=== PATIENT | male | born 1955 | race African-American/Black ===

== ENCOUNTER 2020-07-07 14:33 | Emergency (ER) | payer OTHER ==
[~2020-07-07] VITALS: Ht 172.7 cm; Wt 68.0 kg
[2020-07-07 15:31] LABS: ABSOLUTE NEUTROPHILS 5.9 thou/uL (1.4-8.2); BASOPHILS 0.9 % (0.0-2.0); EOSINOPHILS 1.9 % (0.0-3.0); HEMATOCRIT 39.4 % (42.0-52.0); HEMOGLOBIN 13.5 gm/dL (14.0-18.0); LYMPHOCYTES 21.8 % (24.0-44.0); MCH 27.9 pg (26.0-34.0); MCHC 34.3 g/dL (28.0-37.0); MCV 81.4 fL (80.0-100.0); PLATELET COUNT 303 thou/uL (150-400); POLYS 65.4 % (36.0-66.0); RBC 4.84 mil/uL (4.50-6.00); WBC 9.1 thou/uL (4.0-11.0)
[2020-07-07 15:40] LABS: ANION GAP 8 mmol/L (7-16); BUN 25 mg/dL (7-18); CALCIUM 8.9 mg/dL (8.5-10.1); CHLORIDE 102 mmol/L (98-107); CO2 28 mmol/L (21-32); GLUCOSE 85 mg/dL (74-106); POTASSIUM 4.2 mmol/L (3.5-5.1); SODIUM 138 mmol/L (136-145)
[2020-07-07] MEDS ORDERED: TRAMADOL 50 MG50 MG PO (15:47)
[2020-07-07] MEDS ORDERED: ULTRAM50 MG PO (15:48)
[2020-07-07 15:51] LABS: ALBUMIN 3.7 g/dL (3.4-5.0); MAGNESIUM 2.4 mg/dL (1.8-2.4); SGOT 34 U/L (15-37); SGPT 33 U/L (16-63); TOTAL BILIRUBIN 0.5 mg/dL (0.2-1.0); TOTAL PROTEIN 6.4 g/dL (6.4-8.2); TROPONIN-I <0.06 ng/mL (<0.06)
[2020-07-07 15:51] LABS: URINE BILIRUBIN NEGATIVE (Negative); URINE BLOOD NEGATIVE (Negative); URINE CLARITY CLEAR; URINE COLOR YELLOW; URINE GLUCOSE-RANDOM* NEGATIVE (Negative); URINE KETONES NEGATIVE (Negative); URINE LEUKOCYTES-REFLEX NEGATIVE (Negative); URINE NITRITE-REFLEX NEGATIVE (Negative); URINE PROTEIN (DIPSTICK) NEGATIVE (Negative); URINE UROBILINOGEN 0.2 E.U./dl (0.2-1.0)
[2020-07-07 15:57] LABS: AMP/METHAMP POSITIVE (Negative); BARBITURATES Negative (Negative); BENZODIAZEPINES Negative (Negative); COCAINE Negative (Negative); METHADONE Negative (Negative); OPIATES Negative (Negative); PCP POSITIVE (Negative)
[2020-07-07 17:27] VITALS: BP 129/72
[2020-07-07] MEDS ORDERED: MOBIC7.5 MG PO (17:30)
--- NOTE | 2020-07-09 07:43 | EKG ---
[address] [place] [address] ELECTROCARDIOGRAM REPORT Name: ANA PAULA POEALD Devin [facility] [id number] Admission: 07/07/20 Attend Phys: Discharge: 07/07/20 Date of : 59 Report #: [id number] [facility] ED Test Date: 2020-07-07 Test Time: 15:22:00 Pat Name: HECTOR POE Department: Room: Gender: [employer]: john paul : 1955 Requested By: Apple Villavicencio Order Number: [id number] MD: Jony Lopes Measurements Intervals Sentinel Rate: 62 P: 77 [place]: 130 QRS: 19 QRSD: 94 T: 34 QT: 388 QTc: 394 Interpretive Statements Sinus rhythm Normal tracing No previous ECG available for comparison Electronically Signed On 07-09-2020 7:43:15 [employer] by Jony Lopes [email or web address] <ELECTRONICALLY SIGNED> By: Jnoy Lopes MD, [facility] 07/09/20 0743 1522 1522 Jony Lopes MD, FACC /EPI
== END 2020-07-07 17:26 | disposition home or self-care (01) ==
LOC: ER 14:33
PROVIDERS: Physician Assistant
DX: G54.2 Cervical root disorders, not elsewhere classified (principal); R53.83 Other fatigue; F15.10 Other stimulant abuse, uncomplicated; M19.012 Primary osteoarthritis, left shoulder; Z79.899 Other long term (current) drug therapy